=== PATIENT | male | born 1955 | race Caucasian/White ===

== ENCOUNTER → 2020-05-01 | Outpatient (CLI) | payer MEDICARE, OTHER ==
[~2020-05-01] MED LIST: ALBUTEROL0.63 MG/3 INH; AMIODARONE HCL200 MG PO; AMLODIPINE BESYL5 MG PO; ANTIVERT 12.512.5 MG PO; ASPIRIN EC81 MG PO; ATORVASTATIN CA40 MG PO; AUGMENTIN 875-1 EACH PO; AZITHROMYCIN250 MG PO; B12 INJ; BASAGLAR INJ; BUMETANIDE2 MG PO; CARDIZEM 60MG T60 MG PO; CELEXA10 MG PO; CYANOCOBAL1000 MCG/1 INJ; DILTIAZEM ER240 M1 PO; GABAPENTIN300 MG PO; HYDROCODON-ACE1 EAC2 PO; K-DUR TAB 20 M20 MEQ PO; KEPPRA1000 MG PO; LEVOTHYROXINE150 MC1 PO; METFORMIN HCL1000 MG PO; METOPROLOL SUC100 MG PO; MULTI VIT PO; MYCOSTATIN100000 UTS PO; MYRBETRIQ25 MG PO; OXYGEN; PANTOPRAZOLE SO40 MG PO; TAMSULOSIN HCL0.4 MG PO; TOPROL XL100 MG PO; VITAMIN D21250 MCG PO; XARELTO20 MG PO
[2020-05-02 10:14] LABS: CERULOPLASMIN 21.6 mg/dL (16.0-31.0); HBSAG SCREEN Negative (Negative); HCV ANTIBODY <0.1 (0.0-0.9); HEP A AB, IGM Negative (Negative); HEPATITIS B SURF AB QUANT <3.1 mIU/mL (Immunity>9.9)
[2020-05-02 16:14] LABS: ENDOMYSIAL ANTIBODY IGA Negative (Negative); IMMUNOGLOBULIN A, QN, SERUM 325 mg/dL (61-437); T-TRANSGLUTAMINASE (TTG) IGA 5 U/mL (0-3); T-TRANSGLUTAMINASE (TTG) IGG 7 U/mL (0-5)
[2020-05-03 15:15] LABS: ACTIN (SMOOTH MUSCLE) ANTIBODY 7 Units (0-19); MITOCHONDRIAL (M2) ANTIBODY <20.0 Units (0.0-20.0)
[2020-05-06 17:11] LABS: ALPHA-1-ANTITRYPSIN, SERUM 153 mg/dL (101-187)
== END ==
LOC: LAB 15:13
PROVIDERS: Internal Medicine Gastroenterology
DX: R74.8 Abnormal levels of other serum enzymes (principal)
CPT/HCPCS: 36415; 82103; 82104; 82390; 82728; 82784; 83516; 83540; 83550; 86038; 86317; 86708; 86709; 86803; 87340

== ENCOUNTER 2020-05-08 09:19 | Inpatient (IN) | payer MEDICARE, OTHER ==
[~2020-05-08] VITALS: Ht 182.9 cm; Wt 95.3 kg
[~2020-05-08 09:19] MED LIST changes: -ALBUTEROL0.63 MG/3 INH; -AUGMENTIN 875-1 EACH PO; -BUMETANIDE2 MG PO; -CARDIZEM 60MG T60 MG PO; -CELEXA10 MG PO; -CYANOCOBAL1000 MCG/1 INJ; -K-DUR TAB 20 M20 MEQ PO; -LEVOTHYROXINE150 MC1 PO; -METOPROLOL SUC100 MG PO; -MYCOSTATIN100000 UTS PO; -MYRBETRIQ25 MG PO; -OXYGEN; -TOPROL XL100 MG PO
[2020-05-08 10:26] LABS: HEMOGLOBIN 9.8 gm/dl (14.0-17.5); RED BLOOD COUNT 3.82 M/UL (4.20-5.50); WHITE BLOOD COUNT 8.4 K/UL (4.5-11.0)
[2020-05-08 10:52] LABS: BUN/CREATININE RATIO 17 (0-10)
[2020-05-08] MEDS ORDERED: TOPROL XL100 MG PO (12:17)
[2020-05-08] MEDS ORDERED: CELEXA10 MG PO (12:17)
[2020-05-08] MEDS ORDERED: LEVOTHYROXINE150 MC1 PO (12:20)
[2020-05-08] MEDS ORDERED: CYANOCOBAL1000 MCG/1 INJ (12:21)
[2020-05-08] MEDS ORDERED: MYRBETRIQ25 MG PO (12:22)
[2020-05-08] MEDS ORDERED: ALBUTEROL0.63 MG/3 INH (12:23)
[2020-05-08] MEDS ORDERED: BUMETANIDE2 MG PO (12:24)
[2020-05-08] MEDS ORDERED: K-DUR TAB 20 M20 MEQ PO (12:25)
[2020-05-08] MEDS ORDERED: OXYGEN (12:25)
[2020-05-09 02:21] LABS: HEMOGLOBIN 8.6 gm/dl (14.0-17.5); WHITE BLOOD COUNT 8.5 K/UL (4.5-11.0)
[2020-05-09 02:24] LABS: RED BLOOD COUNT 3.38 M/UL (4.20-5.50)
[2020-05-09 02:54] LABS: BUN/CREATININE RATIO 18 (0-10)
[2020-05-10 05:00] LABS: HEMOGLOBIN 9.6 gm/dl (14.0-17.5); WHITE BLOOD COUNT 10.5 K/UL (4.5-11.0)
[2020-05-10 05:05] LABS: RED BLOOD COUNT 3.78 M/UL (4.20-5.50)
[2020-05-10 05:21] LABS: BUN/CREATININE RATIO 15 (0-10)
[2020-05-11 03:36] LABS: HEMOGLOBIN 9.1 gm/dl (14.0-17.5); RED BLOOD COUNT 3.55 M/UL (4.20-5.50)
[2020-05-11 03:53] LABS: BUN/CREATININE RATIO 14 (0-10)
[2020-05-12 03:18] LABS: RED BLOOD COUNT 3.96 M/UL (4.20-5.50); WHITE BLOOD COUNT 8.2 K/UL (4.5-11.0)
[2020-05-12 03:34] LABS: BUN/CREATININE RATIO 13 (0-10)
[2020-05-12] MEDS ORDERED: CARDIZEM 60MG T60 MG PO (16:19)
[2020-05-12] MEDS ORDERED: MYCOSTATIN100000 UTS PO (16:19)
[2020-05-12] MEDS ORDERED: METOPROLOL SUC100 MG PO (16:19)
[2020-05-12] MEDS ORDERED: AUGMENTIN 875-1 EACH PO (17:07)
== END 2020-05-12 19:40 | disposition home or self-care (01) | DRG 871 ==
LOC: ER1 09:19 → PROG CARE 11:40 → CDU 11:40 → PROG CARE 14:32 → MED SURG 4 05-10 18:43
PROVIDERS: Emergency Medicine; Physician Assistant Medical; ADMIT Internal Medicine
DX: A41.9 Sepsis, unspecified organism (principal); J69.0 Pneumonitis due to inhalation of food and vomit; G93.41 Metabolic encephalopathy; J96.21 Acute and chronic respiratory failure with hypoxia; I48.92 Unspecified atrial flutter; I48.0 Paroxysmal atrial fibrillation; I25.10 Atherosclerotic heart disease of native coronary artery without angina pectoris; E11.9 Type 2 diabetes mellitus without complications; D64.9 Anemia, unspecified; R79.89 Other specified abnormal findings of blood chemistry; I10 Essential (primary) hypertension; E78.5 Hyperlipidemia, unspecified; Z96.649 Presence of unspecified artificial hip joint; Z86.73 Personal history of transient ischemic attack (TIA), and cerebral infarction without residual deficits; Z98.890 Other specified postprocedural states; Z86.16 Personal history of COVID-19; Z79.01 Long term (current) use of anticoagulants; K21.9 Gastro-esophageal reflux disease without esophagitis; E03.9 Hypothyroidism, unspecified; N40.0 Benign prostatic hyperplasia without lower urinary tract symptoms; Z87.891 Personal history of nicotine dependence; Z79.82 Long term (current) use of aspirin; Z99.81 Dependence on supplemental oxygen
CPT/HCPCS: ECHO; 0240U; 36415; 36600; 70450; 71045; 76705; 80053; 80076; 80202; 82550; 82553; 82803; 82962; 83605; 83735; 83874; 83880; 84439; 84443; 84484; 85025; 85027; 85610; 87040; 92526; 92610; 93005; 93306; 94640; 94664; 94760; 96365; 96366; 96367; 96372; 96375; 97161; 97166; 97530; 97530-GP-CQ; 99285; J0692; J1940; J2543; J2920; J3370; J3420; J7030; J7040; J7070

== ENCOUNTER → 2020-06-04 | Outpatient (CLI) | payer MEDICARE, OTHER ==
[~2020-06-04] MED LIST changes: +ALBUTEROL0.63 MG/3 INH; +AUGMENTIN 875-1 EACH PO; +BUMETANIDE2 MG PO; +CARDIZEM 60MG T60 MG PO; +CELEXA10 MG PO; +CYANOCOBAL1000 MCG/1 INJ; +K-DUR TAB 20 M20 MEQ PO; +LEVOTHYROXINE150 MC1 PO; +METOPROLOL SUC100 MG PO; +MYCOSTATIN100000 UTS PO; +MYRBETRIQ25 MG PO; +OXYGEN; +TOPROL XL100 MG PO
== END ==
LOC: CT 09:30
DX: R91.8 Other nonspecific abnormal finding of lung field (principal)
CPT/HCPCS: 71260; Q9967

== ENCOUNTER → 2020-09-03 | Outpatient (CLI) | payer MEDICARE, OTHER ==
[~2020-09-03] MED LIST changes: +IRON325 M1 PO
== END ==
LOC: KOH-I 15:11
DX: R31.0 Gross hematuria (principal); E11.9 Type 2 diabetes mellitus without complications; E55.9 Vitamin D deficiency, unspecified; M17.0 Bilateral primary osteoarthritis of knee; M51.9 Unspecified thoracic, thoracolumbar and lumbosacral intervertebral disc disorder; E03.9 Hypothyroidism, unspecified; N20.1 Calculus of ureter; K80.20 Calculus of gallbladder without cholecystitis without obstruction; K59.00 Constipation, unspecified
CPT/HCPCS: 74176

== ENCOUNTER 2020-09-15 14:00 | Emergency (ER) | payer MEDICARE, OTHER ==
[~2020-09-15 14:00] MED LIST changes: -IRON325 M1 PO
[2020-09-15 14:51] LABS: BORDETELLA PARAPERTUSSIS Not Detected (Not Detectd); BORDETELLA PERTUSSIS Not Detected (Not Detectd); CHLAMYDIA PNEUMONIAE Not Detected (Not Detectd); CORONAVIRUS HKU1 Not Detected (Not Detectd); CORONAVIRUS NL63 Not Detected (Not Detectd); CORONAVIRUS OC43 Not Detected (Not Detectd); CORONOAVIRUS 229E Not Detected (Not Detectd); HUMAN METAPNEUMOVIRUS Not Detected (Not Detectd); HUMAN RHINOVIRUS/ENTEROVIRUS Not Detected (Not Detectd); INFLUENZA A Not Detected (Not Detectd); INFLUENZA B Not Detected (Not Detectd); MYCOPLASMA PNEUMONIAE Not Detected (Not Detectd); PARAINFLUENZA VIRUS 1 Not Detected (Not Detectd); PARAINFLUENZA VIRUS 2 Not Detected (Not Detectd); PARAINFLUENZA VIRUS 3 Not Detected (Not Detectd); PARAINFLUENZA VIRUS 4 Not Detected (Not Detectd); RESPIRATORY SYNCYTIAL VIRUS Not Detected (Not Detectd)
[2020-09-15 15:21] LABS: HEMOGLOBIN 8.6 gm/dl (14.0-17.5); RED BLOOD COUNT 3.59 M/UL (4.20-5.50); WHITE BLOOD COUNT 9.9 K/UL (4.5-11.0)
[2020-09-15 15:39] LABS: BUN/CREATININE RATIO 11 (0-10)
[2020-09-15 16:09] LABS: SARS-CoV-2 NOT DETECTED (Not Detectd)
[2020-09-15] MEDS ORDERED: IRON325 M1 PO (16:29)
== END 2020-09-15 16:53 | disposition home or self-care (01) ==
LOC: ER1 14:00
PROVIDERS: Emergency Medicine
DX: D64.9 Anemia, unspecified (principal); Z20.822 Contact with and (suspected) exposure to COVID-19
CPT/HCPCS: 71045; 80053; 85025; 87081; 87633; 87880; 93005; 99284

== ENCOUNTER 2020-10-03 15:10 | Emergency (ER) | payer MEDICARE, OTHER ==
[~2020-10-03 15:10] MED LIST changes: +IRON325 M1 PO
== END 2020-10-03 18:45 | disposition left against medical advice (07) ==
LOC: ER1 15:10
DX: Z53.21 Procedure and treatment not carried out due to patient leaving prior to being seen by health care provider (principal)

== ENCOUNTER → 2020-10-04 | Outpatient (CLI) | payer MEDICARE, OTHER ==
[2020-10-04 17:41] LABS: HEMOGLOBIN 9.4 gm/dl (14.0-17.5); RED BLOOD COUNT 3.81 M/UL (4.20-5.50); WHITE BLOOD COUNT 7.2 K/UL (4.5-11.0)
[2020-10-04 18:08] LABS: BUN/CREATININE RATIO 12 (0-10)
== END ==
LOC: LAB 16:01
PROVIDERS: Nurse Practitioner Primary Care
DX: E11.9 Type 2 diabetes mellitus without complications (principal); M51.9 Unspecified thoracic, thoracolumbar and lumbosacral intervertebral disc disorder; E55.9 Vitamin D deficiency, unspecified; E03.9 Hypothyroidism, unspecified; M13.861 Other specified arthritis, right knee; M13.862 Other specified arthritis, left knee; D64.9 Anemia, unspecified; R41.0 Disorientation, unspecified; R91.8 Other nonspecific abnormal finding of lung field
CPT/HCPCS: 36415; 70450; 71046; 80053; 82140; 83735; 83880; 84443; 85025

== ENCOUNTER → 2020-10-09 | Outpatient (CLI) | payer MEDICARE, OTHER | LOC: HEART 5 15:39 | DX: R06.02 Shortness of breath (principal); R60.9 Edema, unspecified; R53.83 Other fatigue | CPT/HCPCS: 94060; 94729 ==

== ENCOUNTER → 2020-11-12 | Outpatient (CLI) | payer MEDICARE, OTHER ==
[2020-11-12 10:54] LABS: HEMOGLOBIN 12.9 gm/dl (14.0-17.5); RED BLOOD COUNT 4.76 M/UL (4.20-5.50); WHITE BLOOD COUNT 10.4 K/UL (4.5-11.0)
[2020-11-12 11:19] LABS: BUN/CREATININE RATIO 15 (0-10)
== END ==
LOC: LAB 10:07
PROVIDERS: Nurse Practitioner Primary Care
DX: E11.9 Type 2 diabetes mellitus without complications (principal); M51.9 Unspecified thoracic, thoracolumbar and lumbosacral intervertebral disc disorder; E55.9 Vitamin D deficiency, unspecified; E03.9 Hypothyroidism, unspecified; M13.861 Other specified arthritis, right knee; M13.862 Other specified arthritis, left knee; D64.9 Anemia, unspecified; R41.0 Disorientation, unspecified; I48.19 Other persistent atrial fibrillation; I10 Essential (primary) hypertension; I25.10 Atherosclerotic heart disease of native coronary artery without angina pectoris; R42 Dizziness and giddiness; R60.9 Edema, unspecified; R06.02 Shortness of breath
CPT/HCPCS: 36415; 80053; 80162; 82140; 83735; 83880; 84443; 85025

== ENCOUNTER → 2021-01-28 | Outpatient (CLI) | payer MEDICARE, OTHER | LOC: EXRD 14:11 | DX: M25.562 Pain in left knee (principal); M25.561 Pain in right knee; M17.0 Bilateral primary osteoarthritis of knee | CPT/HCPCS: 73564 ==

== ENCOUNTER 2021-06-11 04:49 | Inpatient (IN) | payer MEDICARE, OTHER ==
[~2021-06-11] VITALS: Ht 182.9 cm; Wt 100.0 kg
[~2021-06-11 04:49] MED LIST changes: -BASAGLAR INJ; +BASAGLAR K100 UNIT/1 SQ; -BUMETANIDE2 MG PO; -CELEXA10 MG PO; +CELEXA40 MG PO; +CYANOCOBAL1000 MCG/1 IM; -CYANOCOBAL1000 MCG/1 INJ; +DECADRON6 MG PO; -GABAPENTIN300 MG PO; +GABAPENTIN600 MG PO; -K-DUR TAB 20 M20 MEQ PO; +LEVOTHYROXINE100 MCG PO; -LEVOTHYROXINE150 MC1 PO; -METFORMIN HCL1000 MG PO; +OMNICEF 300 MG300 MG PO; +SYMBICORT 16010.2 GM INH
[2021-06-11 05:31] LABS: HEMOGLOBIN 16.2 gm/dl (14.0-17.5); RED BLOOD COUNT 5.19 M/UL (4.20-5.50)
[2021-06-11 06:01] LABS: BUN/CREATININE RATIO 14 (0-10)
[2021-06-11] MEDS ORDERED: METFORMIN HCL500 M2 PO (07:08)
[2021-06-11] MEDS ORDERED: GABAPENTIN600 MG PO (10:10)
[2021-06-11] MEDS ORDERED: QUETIAPINE FUMA25 MG PO (10:14)
[2021-06-11] MEDS ORDERED: CARDIZEM60 MG PO (10:49)
[2021-06-11] MEDS ORDERED: TUMS200 MG PO (10:51)
[2021-06-11] MEDS ORDERED: BUMETANIDE1 MG PO (12:24)
[2021-06-11] MEDS ORDERED: POTASSIUM CHLO20 ME1 PO (12:25)
[2021-06-11] MEDS ORDERED: METOPROLOL SUCC50 MG PO (17:28)
[2021-06-11] MEDS ORDERED: DIAZEPAM2 MG PO (17:32)
[2021-06-12 05:52] LABS: RED BLOOD COUNT 3.91 M/UL (4.20-5.50)
[2021-06-13 05:00] LABS: RED BLOOD COUNT 3.85 M/UL (4.20-5.50)
[2021-06-13 05:04] LABS: WHITE BLOOD COUNT 11.4 K/UL (4.5-11.0)
[2021-06-13 05:33] LABS: BUN/CREATININE RATIO 15 (0-10)
[2021-06-14 04:55] LABS: HEMOGLOBIN 11.6 gm/dl (14.0-17.5); RED BLOOD COUNT 3.76 M/UL (4.20-5.50); WHITE BLOOD COUNT 8.7 K/UL (4.5-11.0)
[2021-06-14 05:07] LABS: BUN/CREATININE RATIO 16 (0-10)
[2021-06-15 04:35] LABS: HEMOGLOBIN 11.1 gm/dl (14.0-17.5); RED BLOOD COUNT 3.66 M/UL (4.20-5.50)
[2021-06-15 04:41] LABS: WHITE BLOOD COUNT 5.6 K/UL (4.5-11.0)
[2021-06-15 05:03] LABS: BUN/CREATININE RATIO 21 (0-10)
[2021-06-16 05:13] LABS: HEMOGLOBIN 10.8 gm/dl (14.0-17.5); RED BLOOD COUNT 3.53 M/UL (4.20-5.50); WHITE BLOOD COUNT 7.4 K/UL (4.5-11.0)
[2021-06-16 05:32] LABS: BUN/CREATININE RATIO 19 (0-10)
[2021-06-17 02:25] LABS: HEMOGLOBIN 10.3 gm/dl (14.0-17.5); RED BLOOD COUNT 3.33 M/UL (4.20-5.50); WHITE BLOOD COUNT 7.5 K/UL (4.5-11.0)
[2021-06-17 04:12] LABS: BUN/CREATININE RATIO 16 (0-10)
[2021-06-18 05:42] LABS: HEMOGLOBIN 11.6 gm/dl (14.0-17.5)
[2021-06-18 05:47] LABS: RED BLOOD COUNT 3.82 M/UL (4.20-5.50)
[2021-06-18 06:00] LABS: BUN/CREATININE RATIO 24 (0-10)
[2021-06-18 16:28] LABS: BODY FLUID SOURCE PLEURAL; MONONUCLEAR CELLS 59.6 (75-100); POLYMORPHONUCLEAR % 40.4 (0-25); RBC (AUTOMATED) 2100 (0-100000); WBC (AUTOMATED) 250 (0-500)
[2021-06-18 16:47] LABS: LDH, BODY FLUID 159 U/L; TOTAL PROTEIN, BODY FLUID 2.3 gm/dL
[2021-06-19 05:26] LABS: BUN/CREATININE RATIO 31 (0-10)
[2021-06-19 06:22] LABS: HEMOGLOBIN 11.6 gm/dl (14.0-17.5); RED BLOOD COUNT 3.76 M/UL (4.20-5.50); WHITE BLOOD COUNT 7.6 K/UL (4.5-11.0)
[2021-06-20 03:59] LABS: HEMOGLOBIN 11.5 gm/dl (14.0-17.5); RED BLOOD COUNT 3.63 M/UL (4.20-5.50); WHITE BLOOD COUNT 6.7 K/UL (4.5-11.0)
[2021-06-20 04:15] LABS: BUN/CREATININE RATIO 34 (0-10)
[2021-06-21 04:40] LABS: HEMOGLOBIN 12.3 gm/dl (14.0-17.5); RED BLOOD COUNT 3.97 M/UL (4.20-5.50); WHITE BLOOD COUNT 8.3 K/UL (4.5-11.0)
[2021-06-21 05:05] LABS: BUN/CREATININE RATIO 21 (0-10)
[2021-06-22 06:54] LABS: HEMOGLOBIN 12.4 gm/dl (14.0-17.5); RED BLOOD COUNT 4.01 M/UL (4.20-5.50); WHITE BLOOD COUNT 8.6 K/UL (4.5-11.0)
[2021-06-22 07:17] LABS: BUN/CREATININE RATIO 15 (0-10)
[2021-06-23 04:51] LABS: HEMOGLOBIN 11.9 gm/dl (14.0-17.5); RED BLOOD COUNT 3.86 M/UL (4.20-5.50); WHITE BLOOD COUNT 6.9 K/UL (4.5-11.0)
[2021-06-23 05:10] LABS: BUN/CREATININE RATIO 15 (0-10)
[2021-06-24 02:22] LABS: HEMOGLOBIN 10.7 gm/dl (14.0-17.5); RED BLOOD COUNT 3.48 M/UL (4.20-5.50); WHITE BLOOD COUNT 6.3 K/UL (4.5-11.0)
[2021-06-24 02:40] LABS: BUN/CREATININE RATIO 14 (0-10)
[2021-06-25 02:55] LABS: HEMOGLOBIN 10.8 gm/dl (14.0-17.5); RED BLOOD COUNT 3.52 M/UL (4.20-5.50); WHITE BLOOD COUNT 6.5 K/UL (4.5-11.0)
[2021-06-25 03:40] LABS: BUN/CREATININE RATIO 11 (0-10)
[2021-06-26 02:27] LABS: HEMOGLOBIN 11.1 gm/dl (14.0-17.5); RED BLOOD COUNT 3.64 M/UL (4.20-5.50)
[2021-06-26 02:37] LABS: BUN/CREATININE RATIO 9 (0-10)
[2021-06-26] MEDS ORDERED: LOPRESSOR 25 MG25 MG PO (09:31)
[2021-06-26] MEDS ORDERED: COMBIVENT RESPIM4 GM INH (09:31)
== END 2021-06-26 11:06 | disposition home or self-care (01) | DRG 870 ==
LOC: ER1 04:49 → CCU 06:00 → CDU 06:00 → PROG CARE 06:00 → CCU 07:14 → PROG CARE 06-23 18:31
PROVIDERS: Family Medicine; Internal Medicine; Internal Medicine Pulmonary Disease; ADMIT Internal Medicine
PROC: 5A1955Z Respiratory Ventilation, Greater than 96 Consecutive Hours (ICD-10-PCS; 2021-06-11)
PROC: 5A2204Z Restoration of Cardiac Rhythm, Single (ICD-10-PCS; 2021-06-11)
PROC: 05HN33Z Insertion of Infusion Device into Left Internal Jugular Vein, Percutaneous Approach (ICD-10-PCS; 2021-06-11)
PROC: 0BH18EZ Insertion of Endotracheal Airway into Trachea, Via Natural or Artificial Opening Endoscopic (ICD-10-PCS; 2021-06-11)
PROC: 3E043XZ Introduction of Vasopressor into Central Vein, Percutaneous Approach (ICD-10-PCS; 2021-06-11)
PROC: 0B9J8ZX Drainage of Left Lower Lung Lobe, Via Natural or Artificial Opening Endoscopic, Diagnostic (ICD-10-PCS; 2021-06-12)
PROC: 5A09357 Assistance with Respiratory Ventilation, Less than 24 Consecutive Hours, Continuous Positive Airway Pressure (ICD-10-PCS; 2021-06-17)
PROC: 5A0935A Assistance with Respiratory Ventilation, Less than 24 Consecutive Hours, High Flow/Velocity Cannula (ICD-10-PCS; 2021-06-17)
PROC: 0W9B3ZX Drainage of Left Pleural Cavity, Percutaneous Approach, Diagnostic (ICD-10-PCS; 2021-06-18)
PROC: 5A0935A Assistance with Respiratory Ventilation, Less than 24 Consecutive Hours, High Flow/Velocity Cannula (ICD-10-PCS; 2021-06-19)
PROC: 5A09357 Assistance with Respiratory Ventilation, Less than 24 Consecutive Hours, Continuous Positive Airway Pressure (ICD-10-PCS; 2021-06-21)
PROC: 0DH63UZ Insertion of Feeding Device into Stomach, Percutaneous Approach (ICD-10-PCS; principal; 2021-06-23)
PROC: 3E0G76Z Introduction of Nutritional Substance into Upper GI, Via Natural or Artificial Opening (ICD-10-PCS; 2021-06-23)
DX: A41.59 Other Gram-negative sepsis (principal); J69.0 Pneumonitis due to inhalation of food and vomit; G93.41 Metabolic encephalopathy; J80 Acute respiratory distress syndrome; J44.0 Chronic obstructive pulmonary disease with (acute) lower respiratory infection; I47.2 Ventricular tachycardia; E87.2 Acidosis; N17.9 Acute kidney failure, unspecified; K80.00 Calculus of gallbladder with acute cholecystitis without obstruction; I69.352 Hemiplegia and hemiparesis following cerebral infarction affecting left dominant side; Z20.822 Contact with and (suspected) exposure to COVID-19; G47.00 Insomnia, unspecified; R53.81 Other malaise; Z99.81 Dependence on supplemental oxygen; G40.909 Epilepsy, unspecified, not intractable, without status epilepticus; I25.10 Atherosclerotic heart disease of native coronary artery without angina pectoris; E11.51 Type 2 diabetes mellitus with diabetic peripheral angiopathy without gangrene; I73.9 Peripheral vascular disease, unspecified; E03.9 Hypothyroidism, unspecified; Z96.619 Presence of unspecified artificial shoulder joint; Z96.649 Presence of unspecified artificial hip joint; I48.0 Paroxysmal atrial fibrillation; K21.9 Gastro-esophageal reflux disease without esophagitis; F41.9 Anxiety disorder, unspecified; N40.0 Benign prostatic hyperplasia without lower urinary tract symptoms; E83.42 Hypomagnesemia; E87.6 Hypokalemia; E78.5 Hyperlipidemia, unspecified; I27.20 Pulmonary hypertension, unspecified; E11.65 Type 2 diabetes mellitus with hyperglycemia; I08.1 Rheumatic disorders of both mitral and tricuspid valves; M25.562 Pain in left knee; M25.561 Pain in right knee; B96.1 Klebsiella pneumoniae [K. pneumoniae] as the cause of diseases classified elsewhere; Z86.16 Personal history of COVID-19; Z79.01 Long term (current) use of anticoagulants; Z95.5 Presence of coronary angioplasty implant and graft; Z98.49 Cataract extraction status, unspecified eye; Z98.890 Other specified postprocedural states; Z87.891 Personal history of nicotine dependence; Z95.828 Presence of other vascular implants and grafts; Z82.49 Family history of ischemic heart disease and other diseases of the circulatory system; Z79.82 Long term (current) use of aspirin; Z79.899 Other long term (current) drug therapy; Z79.4 Long term (current) use of insulin
CPT/HCPCS: 31500; 36415; 36600; 71045; 71275; 74018; 76705; 80048; 80053; 80202; 82140; 82150; 82550; 82553; 82803; 82945; 82962; 83036; 83605; 83615; 83690; 83735; 83880; 83986; 84100; 84132; 84157; 84478; 84484; 85025; 85027; 85379; 85610; 85730; 86140; 87040; 87070; 87077; 87081; 87086; 87186; 87205; 87206; 87252; 89051; 92526; 92610; 93005; 94002; 94003; 94640; 94660; 94664; 94760; 97110; 97162; 97167; 97530; 97530-GP-CQ; 99285; C1729; C9113; J0330; J0360; J0696; J1160; J1940; J2185; J2543; J2704; J3010; J3370; J3475; J3480; J7030; J7040; J7070; Q0177; Q9967; U0002

== ENCOUNTER → 2021-07-14 | Outpatient (CLI) | payer MEDICARE, OTHER ==
[~2021-07-14] MED LIST changes: +BUMETANIDE1 MG PO; +CARDIZEM60 MG PO; +COMBIVENT RESPIM4 GM INH; +DIAZEPAM2 MG PO; +LOPRESSOR 25 MG25 MG PO; +METFORMIN HCL500 M2 PO; +METOPROLOL SUCC50 MG PO; +POTASSIUM CHLO20 ME1 PO; +QUETIAPINE FUMA25 MG PO; +TUMS200 MG PO
== END ==
LOC: NM 08:28
DX: J69.0 Pneumonitis due to inhalation of food and vomit (principal); R93.3 Abnormal findings on diagnostic imaging of other parts of digestive tract
CPT/HCPCS: 78264; A9541

== ENCOUNTER → 2021-07-18 | Outpatient (CLI) | payer MEDICARE, OTHER | LOC: NM 08:44 | DX: K81.9 Cholecystitis, unspecified (principal); J69.0 Pneumonitis due to inhalation of food and vomit; G24.9 Dystonia, unspecified; N40.1 Benign prostatic hyperplasia with lower urinary tract symptoms | CPT/HCPCS: 36415; 78227; 84153; A9537 ==

== ENCOUNTER → 2021-07-28 | Outpatient (CLI) | payer MEDICARE, OTHER | LOC: EXRD 15:43 | DX: J69.0 Pneumonitis due to inhalation of food and vomit (principal) | CPT/HCPCS: 71046 ==

== ENCOUNTER 2021-10-16 05:37 | Inpatient (IN) | payer MEDICARE, OTHER ==
[~2021-10-16] VITALS: Ht 182.9 cm; Wt 86.2 kg
[2021-10-16 06:25] LABS: HEMOGLOBIN 14.4 gm/dl (14.0-17.5); RED BLOOD COUNT 4.72 M/UL (4.20-5.50); WHITE BLOOD COUNT 10.9 K/UL (4.5-11.0)
[2021-10-16] MEDS ORDERED: CLONIDINE HCL0.1 MG PO (09:33)
[2021-10-17 01:49] LABS: HEMOGLOBIN 12.5 gm/dl (14.0-17.5); WHITE BLOOD COUNT 11.7 K/UL (4.5-11.0)
[2021-10-17 01:52] LABS: RED BLOOD COUNT 4.12 M/UL (4.20-5.50)
[2021-10-17 02:40] LABS: BUN/CREATININE RATIO 15 (0-10)
[2021-10-17] MEDS ORDERED: AMOX TR-K CLV1 EAC4 PO (13:17)
== END 2021-10-17 15:55 | disposition home or self-care (01) | DRG 871 ==
LOC: ER1 05:37 → PROG CARE 08:39 → CDU 08:39 → PROG CARE 14:54
PROVIDERS: Emergency Medicine; Physician Assistant Medical; ADMIT Internal Medicine
PROC: 5A09357 Assistance with Respiratory Ventilation, Less than 24 Consecutive Hours, Continuous Positive Airway Pressure (ICD-10-PCS; principal; 2021-10-16)
DX: A41.9 Sepsis, unspecified organism (principal); G93.41 Metabolic encephalopathy; R65.20 Severe sepsis without septic shock; Z20.822 Contact with and (suspected) exposure to COVID-19; J69.0 Pneumonitis due to inhalation of food and vomit; J96.21 Acute and chronic respiratory failure with hypoxia; J18.9 Pneumonia, unspecified organism; I25.110 Atherosclerotic heart disease of native coronary artery with unstable angina pectoris; F11.20 Opioid dependence, uncomplicated; J44.0 Chronic obstructive pulmonary disease with (acute) lower respiratory infection; N17.9 Acute kidney failure, unspecified; Z96.643 Presence of artificial hip joint, bilateral; I48.0 Paroxysmal atrial fibrillation; N40.0 Benign prostatic hyperplasia without lower urinary tract symptoms; I71.4 Abdominal aortic aneurysm, without rupture; E11.51 Type 2 diabetes mellitus with diabetic peripheral angiopathy without gangrene; D69.6 Thrombocytopenia, unspecified; E03.9 Hypothyroidism, unspecified; I10 Essential (primary) hypertension; Z86.73 Personal history of transient ischemic attack (TIA), and cerebral infarction without residual deficits; Z79.01 Long term (current) use of anticoagulants; Z79.82 Long term (current) use of aspirin; Z79.4 Long term (current) use of insulin; Z95.5 Presence of coronary angioplasty implant and graft; Z99.81 Dependence on supplemental oxygen; Z98.890 Other specified postprocedural states; Z82.49 Family history of ischemic heart disease and other diseases of the circulatory system
CPT/HCPCS: 36415; 36600; 70450; 71045; 80053; 81001; 82140; 82550; 82553; 82803; 82962; 83605; 83735; 83880; 84100; 84484; 85025; 85027; 86140; 87040; 87081; 87086; 93005; 94640; 94660; 94664; 94760; 96365; 96366; 96375; 99285; J0456; J0696; J2543; J2930; J3370; J3420; J7030; J7070; U0002

== ENCOUNTER 2021-10-27 06:02 | Observation (INO) | payer OTHER ==
[~2021-10-27] VITALS: Ht 182.9 cm; Wt 86.2 kg
[~2021-10-27 06:02] MED LIST changes: +AMOX TR-K CLV1 EAC4 PO; +CLONIDINE HCL0.1 MG PO; -CYANOCOBAL1000 MCG/1 IM; +CYANOCOBAL1000 MCG/1 INJ
[2021-10-27 06:27] LABS: HEMOGLOBIN 12.9 gm/dl (14.0-17.5); RED BLOOD COUNT 4.23 M/UL (4.20-5.50)
[2021-10-27 06:48] LABS: BUN/CREATININE RATIO 11 (0-10)
[2021-10-27] MEDS ORDERED: COMBIVENT RESPIM4 GM INH (08:30)
[2021-10-27] MEDS ORDERED: METOCLOPRAMIDE10 MG PO (08:32)
[2021-10-27] MEDS ORDERED: METOPROLOL SUCC50 MG PO (08:32)
[2021-10-28 06:26] LABS: HEMOGLOBIN 10.3 gm/dl (14.0-17.5); RED BLOOD COUNT 3.41 M/UL (4.20-5.50); WHITE BLOOD COUNT 7.7 K/UL (4.5-11.0)
[2021-10-28 06:59] LABS: BUN/CREATININE RATIO 10 (0-10)
[2021-10-29 06:14] LABS: HEMOGLOBIN 10.9 gm/dl (14.0-17.5); RED BLOOD COUNT 3.62 M/UL (4.20-5.50); WHITE BLOOD COUNT 6.7 K/UL (4.5-11.0)
[2021-10-29 08:05] LABS: BUN/CREATININE RATIO 7 (0-10)
[2021-10-29] MEDS ORDERED: AMOX TR-K CLV1 EAC4 PO (11:58)
[2021-10-30 15:13] LABS: ORGANISM ID Not indicated. (.); SPECIMEN SOURCE Urine (.); STREPTOCOCCUS PNEUMONIAE AG Negative (Negative)
== END 2021-10-29 15:27 | disposition home or self-care (01) ==
LOC: ER1 06:02 → CDU 08:13 → MED SURG 4 08:13
PROVIDERS: Internal Medicine; Physician Assistant; Physician Assistant Medical; ADMIT Internal Medicine
DX: J69.0 Pneumonitis due to inhalation of food and vomit (principal); J96.21 Acute and chronic respiratory failure with hypoxia; I25.10 Atherosclerotic heart disease of native coronary artery without angina pectoris; Z20.822 Contact with and (suspected) exposure to COVID-19; E11.9 Type 2 diabetes mellitus without complications; I10 Essential (primary) hypertension; Z86.16 Personal history of COVID-19; E03.9 Hypothyroidism, unspecified; N40.0 Benign prostatic hyperplasia without lower urinary tract symptoms; I69.354 Hemiplegia and hemiparesis following cerebral infarction affecting left non-dominant side; J44.9 Chronic obstructive pulmonary disease, unspecified; Z79.4 Long term (current) use of insulin; Z79.84 Long term (current) use of oral hypoglycemic drugs; Z79.82 Long term (current) use of aspirin; Z79.890 Hormone replacement therapy; Z79.899 Other long term (current) drug therapy; Z87.891 Personal history of nicotine dependence; Z95.5 Presence of coronary angioplasty implant and graft; Z99.81 Dependence on supplemental oxygen
CPT/HCPCS: 36415; 36600; 71045; 80048; 80053; 81001; 82550; 82553; 82803; 82962; 83605; 83735; 83880; 84100; 84484; 85025; 85027; 86140; 87040; 87081; 87086; 87278; 87899; 92526; 92610; 93005; 94640; 94664; 94760; 96365; 96366; 96375; 96376; 99285; G0378; J2185; J2543; J3370; J7030; U0002

== ENCOUNTER → 2021-11-04 | Outpatient (CLI) | payer MEDICARE, OTHER ==
[~2021-11-04] MED LIST changes: +METOCLOPRAMIDE10 MG PO
== END ==
LOC: RAD 14:25
DX: R05.9 Cough, unspecified (principal); R93.89 Abnormal findings on diagnostic imaging of other specified body structures; J40 Bronchitis, not specified as acute or chronic; R91.8 Other nonspecific abnormal finding of lung field
CPT/HCPCS: 71046